=== PATIENT | male | born 1970 | race Caucasian/White ===

== ENCOUNTER 2018-04-15 09:05 | Emergency (ER) | payer MEDICARE, OTHER ==
[~2018-04-15] VITALS: Ht 182.9 cm; Wt 106.6 kg
[2018-04-15 09:11] VITALS: BP_SYST 168
[2018-04-15] MEDS ORDERED: NACL 0.9% 1,000 ML IV ONE (09:15)
[2018-04-15] MEDS ORDERED: PROMETHAZINE HCL 25 MG/ML AMP IVP ONE (10:30)
[2018-04-15 10:31] LABS: ANION GAP 12 (5-15); CALCIUM 9.2 mg/dL (8.4-11.0); CHLORIDE 101 mmol/L (98-107); GLUCOSE 123 mg/dL (70-99); POTASSIUM 3.6 mmol/L (3.5-5.1); SODIUM SERUM 141 mmol/L (136-145); UREA NITROGEN, BLOOD 8 mg/dL (8-21)
[2018-04-15 10:36] LABS: ALANINE AMINOTRANSFERASE 26 U/L (12-78); ALBUMIN 4.3 g/dL (3.4-4.8); ASPARTATE AMINOTRANSFERASE 14 U/L (10-37); TOTAL BILIRUBIN 0.4 mg/dL (0.0-1.0)
[2018-04-15 10:39] LABS: GFR AFRICAN AMERICAN 92 mL/min (>90)
[2018-04-15 10:40] LABS: ALCOHOL, BLOOD < 3 mg/dL (<10)
[2018-04-15 10:53] LABS: BASOPHILS # (AUTO) 0.1 K/uL (0.0-0.2); BASOPHILS % (AUTO) 0.6 % (0.0-2.0); EOSINOPHILS # (AUTO) 0.1 K/uL (0.0-0.4); EOSINOPHILS % (AUTO) 0.8 % (0.0-4.0); HEMATOCRIT 44.3 % (36-54); HEMOGLOBIN 14.9 g/dL (14.0-18.0); LYMPHOCYTES # (AUTO) 2.2 K/uL (1.0-5.5); LYMPHOCYTES % (AUTO) 15.9 % (20.5-51.5); MEAN CORPUSCULAR HEMOGLOBIN 31 pg (27-31); MEAN CORPUSCULAR HGB CONC 34 % (32-36); MEAN CORPUSCULAR VOLUME 91 fL (79.0-98.0); MONOCYTES # (AUTO) 1.2 K/uL (0.0-1.0); MONOCYTES % (AUTO) 8.9 % (1.7-9.3); NEUTROPHILS # (AUTO) 10.2 K/uL (1.8-7.7); NEUTROPHILS % (AUTO) 73.8 % (40.0-70.0); PLATELET COUNT (AUTO) 397 K/uL (130-430); RED BLOOD CELL COUNT(AUTO) 4.89 MIL/uL (4.2-6.2); WHITE BLOOD COUNT (AUTO) 13.8 K/uL (4.8-10.8)
[2018-04-15 11:10] LABS: ACETAMINOPHEN < 1 ug/mL (1-30)
[2018-04-15 13:12] LABS: BARBITURATE, URINE NEGATIVE (NEG <=200); BENZODIAZEPINE, URINE NEGATIVE (NEG <=150); CANNABINOID, URINE NEGATIVE (NEG <=50); COCAINE, URINE NEGATIVE (NEG <=150); METHAMPHETAMINES SCREEN,URINE POSITIVE (NEG <=500); OPIATE, URINE POSITIVE (NEG <=100); PHENCYCLIDINE SCREEN,URINE NEGATIVE (NEG <=25); UR TRICYCLIC ANTIDEPRESSANTS NEGATIVE (NEG <=300); URINE AMPHETAMINE POSITIVE (NEG <=500); URINE METHADONE NEGATIVE (NEG <=200); URINE OXYCODONE SCREEN NEGATIVE (NEG <=100); URINE PROPOXYPHENE SCREEN NEGATIVE (NEG <=300)
[2018-04-15] MEDS ORDERED: hydrALAZINE HCL 20 MG/ML VIAL IVP ONE ×2 (17:30→20:00)
[2018-04-15 20:04] LABS: BASOPHILS % (AUTO) 0.3 % (0.0-2.0); EOSINOPHILS # (AUTO) 0.3 K/uL (0.0-0.4); EOSINOPHILS % (AUTO) 2.8 % (0.0-4.0); HEMATOCRIT 44.1 % (36-54); HEMOGLOBIN 15.3 g/dL (14.0-18.0); LYMPHOCYTES # (AUTO) 2.3 K/uL (1.0-5.5); LYMPHOCYTES % (AUTO) 19.8 % (20.5-51.5); MEAN CORPUSCULAR HEMOGLOBIN 31 pg (27-31); MEAN CORPUSCULAR HGB CONC 35 % (32-36); MEAN CORPUSCULAR VOLUME 90 fL (79.0-98.0); MONOCYTES # (AUTO) 0.6 K/uL (0.0-1.0); MONOCYTES % (AUTO) 5.3 % (1.7-9.3); NEUTROPHILS # (AUTO) 8.3 K/uL (1.8-7.7); NEUTROPHILS % (AUTO) 71.8 % (40.0-70.0); PLATELET COUNT (AUTO) 380 K/uL (130-430); WHITE BLOOD COUNT (AUTO) 11.5 K/uL (4.8-10.8)
[2018-04-15] MEDS ORDERED: METOPROLOL SUCCINATE 50 MG TAB.SR.24H (TOPROL XL) PO ONE (21:45)
[2018-04-16] MEDS ORDERED: DIPHENHYDRAMINE HCL 50 MG CAPSULE PO ONE (01:00)
[2018-04-16] MEDS ORDERED: METOPROLOL SUCCINATE 50 MG TAB.SR.24H (TOPROL XL) PO ONE ×2 (01:30→01:49)
[2018-04-16 07:49] VITALS: BP_SYST 119
== END 2018-04-16 07:49 | disposition short-term general hospital (02) ==
LOC: SED 09:05
DX: F29 Unspecified psychosis not due to a substance or known physiological condition (principal); F19.10 Other psychoactive substance abuse, uncomplicated; Z88.0 Allergy status to penicillin; Z88.1 Allergy status to other antibiotic agents; Z88.6 Allergy status to analgesic agent; Z88.8 Allergy status to other drugs, medicaments and biological substances
CPT/HCPCS: 36415; 80053; 80307; 85025; 93005; 96361; 96374; 96375; 96376; 99285; G0480; G0481; G0482; J0360; J2550; J7030; Q0163

== ENCOUNTER 2019-02-19 12:33 | Emergency (ER) | payer MEDICARE, OTHER ==
[~2019-02-19] VITALS: Ht 177.8 cm; Wt 99.8 kg
[2019-02-19 12:33] VITALS: BP_SYST 153
--- NOTE | 2019-02-19 12:33 | NUR ---
BROUGHT IN BY [facility], REPORT GIVEN TO JENNIFER
[2019-02-19] MEDS ORDERED: LORazepam 1 MG TABLET PO ONE ×2 (12:45→21:30)
[2019-02-19] MEDS ORDERED: DIPHENHYDRAMINE INJ 50 MG/ML VIAL IM ONE (12:45)
--- NOTE | 2019-02-19 12:45 | NUR ---
PT BIB EMS FOR ANXIETY AFTER TAKING SEROQUEL THE LAST TWO DAYS. PT H/O PSYCH AND HTN.
--- NOTE | 2019-02-19 13:00 | NUR ---
ER Sivan Schwartz at bedside examining patient.
--- NOTE | 2019-02-19 14:30 | NUR ---
PT MEDICATED FOR ANXIETY.PT TOLERATED WELL.CONTINUING TO MONITOR
[2019-02-19] MEDS ORDERED: ALPRAZolam 0.25 MG TABLET PO ONE (15:00)
--- NOTE | 2019-02-19 15:15 | NUR ---
PT MEDICATED FOR UNRESOLVING ANXIETY.
--- NOTE | 2019-02-19 16:00 | NUR ---
PT EXPRESSED SI.PT PLACED IN BED 5. SUICIDE PRECAUTIONS INITITATED.
[2019-02-19 16:39] LABS: BASOPHILS # (AUTO) 0.1 K/uL (0.0-0.2); BASOPHILS % (AUTO) 0.9 % (0.0-2.0); EOSINOPHILS # (AUTO) 0.3 K/uL (0.0-0.4); EOSINOPHILS % (AUTO) 2.8 % (0.0-4.0); HEMATOCRIT 44.4 % (36-54); HEMOGLOBIN 15.4 g/dL (14.0-18.0); LYMPHOCYTES # (AUTO) 1.7 K/uL (1.0-5.5); LYMPHOCYTES % (AUTO) 17.2 % (20.5-51.5); MEAN CORPUSCULAR HEMOGLOBIN 32 pg (27-31); MEAN CORPUSCULAR HGB CONC 35 % (32-36); MEAN CORPUSCULAR VOLUME 93 fL (79.0-98.0); MONOCYTES # (AUTO) 0.7 K/uL (0.0-1.0); MONOCYTES % (AUTO) 7.2 % (1.7-9.3); NEUTROPHILS % (AUTO) 71.9 % (40.0-70.0); PLATELET COUNT (AUTO) 309 K/uL (130-430); RED CELL DISTRIBUTION WIDTH 13.7 % (9.0-15.0); WHITE BLOOD COUNT (AUTO) 9.8 K/uL (4.8-10.8)
[2019-02-19 16:45] LABS: ANION GAP 6 (5-15); CHLORIDE 98 mmol/L (98-107); CREATININE 1.06 mg/dL (0.55-1.30); GLUCOSE 127 mg/dL (70-99); POTASSIUM 4.2 mmol/L (3.5-5.1); SODIUM SERUM 132 mmol/L (136-145); UREA NITROGEN, BLOOD 8 mg/dL (8-21)
[2019-02-19 16:47] LABS: GFR AFRICAN AMERICAN 95 mL/min (>90)
[2019-02-19 16:48] LABS: BENZODIAZEPINE, URINE POSITIVE (NEG <=150); OPIATE, URINE POSITIVE (NEG <=100); URINE AMPHETAMINE POSITIVE (NEG <=500)
[2019-02-19 16:49] LABS: BARBITURATE, URINE NEGATIVE (NEG <=200); CANNABINOID, URINE NEGATIVE (NEG <=50); COCAINE, URINE NEGATIVE (NEG <=150); METHAMPHETAMINES SCREEN,URINE NEGATIVE (NEG <=500); PHENCYCLIDINE SCREEN,URINE NEGATIVE (NEG <=25); UR TRICYCLIC ANTIDEPRESSANTS NEGATIVE (NEG <=300); URINE METHADONE NEGATIVE (NEG <=200); URINE OXYCODONE SCREEN NEGATIVE (NEG <=100); URINE PROPOXYPHENE SCREEN NEGATIVE (NEG <=300)
[2019-02-19 16:52] LABS: ALANINE AMINOTRANSFERASE 31 U/L (12-78); ASPARTATE AMINOTRANSFERASE 17 U/L (10-37); TOTAL BILIRUBIN 0.4 mg/dL (0.0-1.0)
[2019-02-19 16:54] LABS: ALCOHOL, BLOOD < 3 mg/dL (<10)
[2019-02-19 17:05] LABS: ACETAMINOPHEN < 1 ug/mL (1-30); ALBUMIN 4.1 g/dL (3.4-4.8)
--- NOTE | 2019-02-19 17:22 | NUR ---
DR. CAHMPAGNE, [facility] EPRP DOC, PAGED BACK TO SPEAK WIOTH DR. AGUIRRE REGARDING PT STATUS.
--- NOTE | 2019-02-19 18:05 | NUR ---
SPOKE WITH VU AT [facility], REPORT GIVEN. PT TO RECEIVE [facility]. [facility] WILL CALL WITH ETA.
--- NOTE | 2019-02-19 19:16 | NUR ---
SPOKE TO Tawanda AT [facility].PT TO Addendum: 02/19/19 at 1917 by MARIA G PT BE EVALUATED BY PAULETTE HymanRS.
--- NOTE | 2019-02-19 20:15 | NUR ---
Rep from [facility] José Luis here for Pt Psych eval
--- NOTE | 2019-02-19 22:00 | NUR ---
VSS no s/s of acute distress. Resting on gurney with sitter at bedside
--- NOTE | 2019-02-19 22:30 | NUR ---
Pt's family member "True" spoke on the phone and updated Pt will be transferred to [facility]
--- NOTE | 2019-02-19 23:05 | NUR ---
[facility] [place] transport ETA 30 min or less
[2019-02-19 23:45] VITALS: BP_SYST 122
--- NOTE | 2019-02-19 23:45 | NUR ---
Patient to be transferred to [facility]. Is being transferred due to higher level of care. Receiving facility has accepting physician and available space. ER physician has signed transfer form. Patient or responsible alliance party has agreed to transfer and signed form. Patient belongings inventoried and will be sent with patient. Copy of nursing notes sent. Receiving physician is Dr. Greenberg. [facility] ambulance service is present for Transport
== END 2019-02-19 23:45 | disposition short-term general hospital (02) ==
LOC: SED 12:33
DX: R45.851 Suicidal ideations (principal); F19.10 Other psychoactive substance abuse, uncomplicated; Z88.0 Allergy status to penicillin; Z88.1 Allergy status to other antibiotic agents; Z88.5 Allergy status to narcotic agent; Z88.6 Allergy status to analgesic agent; Z88.8 Allergy status to other drugs, medicaments and biological substances
CPT/HCPCS: 36415; 80053; 80307; 85025; 96372; 99285; G0480; G0481; G0482; J1200

== ENCOUNTER 2019-03-15 12:45 | Emergency (ER) | payer MEDICARE, OTHER ==
[~2019-03-15] VITALS: Ht 177.8 cm; Wt 99.8 kg
[2019-03-15 12:45] VITALS: BP_SYST 135
--- NOTE | 2019-03-15 12:45 | NUR ---
MD Whitman at bedside.
--- NOTE | 2019-03-15 12:45 | NUR ---
Patient to ER bed 2 to gown for evaluation. Side rails up. Report given to ABDON Butt.
[2019-03-15] MEDS ORDERED: NALOXONE HCL 0.4 MG/ML AMP (NARCAN) IVP ONE (13:00)
[2019-03-15] MEDS ORDERED: FLUMAZENIL 0.1 MG/ML IVP ONE ×2 (13:00→13:45)
[2019-03-15] MEDS ORDERED: NACL 0.9% 1,000 ML IV ONE ×2 (13:00→13:45)
[2019-03-15 13:15] LABS: BILIRUBIN,URINE NEGATIVE (NEGATIVE); CLARITY/URINE CLEAR (CLEAR); COLOR,URINE YELLOW (YELLOW); GLUCOSE,URINE NEGATIVE (NEGATIVE); KETONES,URINE 1+ (NEGATIVE); LEUKOCYTE ESTERASE ,URINE NEGATIVE (NEGATIVE); NITRITE, URINE NEGATIVE (NEGATIVE); PROTEIN URINE NEGATIVE (NEGATIVE); UROBILINOGEN,URINE 0.2 (0.2-1.0)
[2019-03-15 13:20] LABS: BLOOD, URINE TRACE (NEGATIVE)
[2019-03-15 13:25] LABS: BASOPHILS # (AUTO) 0.1 K/uL (0.0-0.2); BASOPHILS % (AUTO) 0.7 % (0.0-2.0); EOSINOPHILS # (AUTO) 0.1 K/uL (0.0-0.4); EOSINOPHILS % (AUTO) 0.9 % (0.0-4.0); HEMATOCRIT 41.1 % (36-54); HEMOGLOBIN 14.1 g/dL (14.0-18.0); LYMPHOCYTES # (AUTO) 2.3 K/uL (1.0-5.5); LYMPHOCYTES % (AUTO) 19.4 % (20.5-51.5); MEAN CORPUSCULAR HEMOGLOBIN 32 pg (27-31); MEAN CORPUSCULAR HGB CONC 34 % (32-36); MEAN CORPUSCULAR VOLUME 92 fL (79.0-98.0); MONOCYTES # (AUTO) 1.1 K/uL (0.0-1.0); MONOCYTES % (AUTO) 9.2 % (1.7-9.3); NEUTROPHILS # (AUTO) 8.5 K/uL (1.8-7.7); NEUTROPHILS % (AUTO) 69.8 % (40.0-70.0); PLATELET COUNT (AUTO) 269 K/uL (130-430); RED BLOOD CELL COUNT(AUTO) 4.47 MIL/uL (4.2-6.2); RED CELL DISTRIBUTION WIDTH 13.8 % (9.0-15.0); WHITE BLOOD COUNT (AUTO) 12.1 K/uL (4.8-10.8)
[2019-03-15 13:30] LABS: METHAMPHETAMINES SCREEN,URINE POSITIVE (NEG <=500); OPIATE, URINE POSITIVE (NEG <=100)
[2019-03-15 13:31] LABS: BARBITURATE, URINE NEGATIVE (NEG <=200); BENZODIAZEPINE, URINE POSITIVE (NEG <=150); CANNABINOID, URINE NEGATIVE (NEG <=50); COCAINE, URINE NEGATIVE (NEG <=150); PHENCYCLIDINE SCREEN,URINE NEGATIVE (NEG <=25); UR TRICYCLIC ANTIDEPRESSANTS NEGATIVE (NEG <=300); URINE AMPHETAMINE POSITIVE (NEG <=500); URINE METHADONE NEGATIVE (NEG <=200); URINE OXYCODONE SCREEN NEGATIVE (NEG <=100); URINE PROPOXYPHENE SCREEN NEGATIVE (NEG <=300)
[2019-03-15 13:37] LABS: BACTERIA,URINE RARE /HPF (None Seen); MUCUS,URINE 1+ /LPF (None Seen); RBC,URINE 0-3 /HPF (0-3); WBC,URINE 0-3 /HPF (0-3)
--- NOTE | 2019-03-15 13:37 | NUR ---
RN assesses pt and he is sleeping, . pt awakens at times , but remains mostly unresponsive. He is stable on VS>
[2019-03-15 13:40] LABS: ANION GAP 12 (5-15); CHLORIDE 103 mmol/L (98-107); CREATININE 1.21 mg/dL (0.55-1.30); GFR AFRICAN AMERICAN 82 mL/min (>90); GLUCOSE 86 mg/dL (70-99); POTASSIUM 3.3 mmol/L (3.5-5.1); SODIUM SERUM 139 mmol/L (136-145); UREA NITROGEN, BLOOD 12 mg/dL (8-21)
[2019-03-15] MEDS ORDERED: NALOXONE HCL 2 MG/2 ML SYR IVP ONE (13:45)
[2019-03-15 13:48] LABS: ALANINE AMINOTRANSFERASE 40 U/L (12-78); ALBUMIN 3.8 g/dL (3.4-4.8); ASPARTATE AMINOTRANSFERASE 23 U/L (10-37); TOTAL BILIRUBIN 0.6 mg/dL (0.0-1.0)
[2019-03-15 13:49] LABS: ALCOHOL, BLOOD < 3 mg/dL (<10)
[2019-03-15] MEDS ORDERED: DEXTROSE 50% JECT 50 ML DISP.SYRIN IVP ONE (16:00)
[2019-03-15] MEDS ORDERED: DEXTROSE 50% JECT 50 ML DISP.SYRIN ONE (16:11)
--- NOTE | 2019-03-15 16:30 | NUR ---
Transfer to [facility]. Dr Whitman spoke with Dr. Estevez. transport on the way.
--- NOTE | 2019-03-15 16:30 | NUR ---
Patient to be transferred to [facility]. Is being transferred due to higher level of care. Receiving facility has accepting physician and available space. ER physician has signed transfer form. Patient or responsible libertarian has agreed to transfer and signed form. Patient belongings inventoried and will be sent with patient. Copy of nursing notes, lab reports, EKG, Physicians Orders and X-rays to be sent with patient. Report called to [place] RN at receiving facility. Receiving physician is DR Estevez. ambulance service has been called for transfer. ETA is 15 minutes .
[2019-03-15 16:55] VITALS: BP_SYST 127
== END 2019-03-15 16:55 | disposition short-term general hospital (02) ==
LOC: SED 12:45
DX: T50.991A Poisoning by other drugs, medicaments and biological substances, accidental (unintentional), initial encounter (principal); E87.6 Hypokalemia; F11.10 Opioid abuse, uncomplicated; F15.10 Other stimulant abuse, uncomplicated; R41.82 Altered mental status, unspecified; Z88.0 Allergy status to penicillin; Z88.1 Allergy status to other antibiotic agents; Z88.5 Allergy status to narcotic agent; Z79.899 Other long term (current) drug therapy; Y92.89 Other specified places as the place of occurrence of the external cause
CPT/HCPCS: 36415; 70450; 71045; 80053; 80307; 81000; 82962; 84484; 85025; 93005; 96361; 96374; 96375; 96376; 99291; 99292; G0482; J2310 ×2; J3490; J7030